=== PATIENT | male | born 1995 ===

== ENCOUNTER 2019-05-02 12:45 | Emergency (ER) | payer BC ==
--- NOTE | 2019-05-02 12:54 | ER Report ---
History and Physical Time Seen By MD: 12:50 HPI/ROS CHIEF COMPLAINT: Laceration, suture removal. HISTORY OF PRESENT ILLNESS: The patient returns to the ED for suture removal. There have been no problems and no symptoms of infection. The laceration was on the right fourth and fifth fingers. Sutures have been in place for 7 days. Allergies: Coded Allergies: No Known Drug Allergies (Unverified , 04/22/19) Past Medical/Surgical History Patient has no pertinent medical or surgical history. Reviewed Nurses Notes: Yes Constitutional Vital Sign - Last 24 Hours 05/02/19 13:05 Temp 98.2 Pulse 97 Resp 20 B/P (MAP) 146/90 Pulse Ox 93 O2 Delivery Room Air Physical Exam General appearance: alert no distress Skin: The laceration of the right fourth and fifth fingers is well healing and appears to have no evidence of infection. MEDICAL DECISION MAKING: I requested that the nurse remove the sutures. Following removal there was no dehiscence of the wound noted. Medical Decision Making ED Course/Re-evaluation ED Course Patient is admitted and examined, history and physical were obtained. Differential diagnoses were considered. On examination lungs are clear, heart is regular. Patient had no dehiscence of the wound after sutures are removed. Patient will be discharged home. He is to monitor for signs of infection. Patient verbalized understanding and agreement with plan. Decision to Disposition Date: May 02, 2019 Decision to Disposition Time: 12:54 Depart Departure Latest Vital Signs Vital Signs Date Time Temp Pulse Resp B/P (MAP) Pulse Ox O2 Delivery O2 Flow Rate FiO2 05/02/19 13:05 98.2 97 20 146/90 93 Room Air Impression: Primary Impression: Visit for suture removal Condition: Improved Disposition: HOME OR SELF-CARE Patient Instructions: Stitches Removal (ED) Additional Instructions: Continue to allow laceration to heal. Keep area clean. If redness, heat or discharge appear these could be signs of infection and return to ED or primary care provider. MARLO SOTO May 02, 2019 12:54
[2019-05-02 13:05] VITALS: BP 146/90
== END 2019-05-02 13:05 | disposition home or self-care (01) ==
LOC: ER 12:50
DX: S61.214D Laceration without foreign body of right ring finger without damage to nail, subsequent encounter (principal); S61.216D Laceration without foreign body of right little finger without damage to nail, subsequent encounter
CPT/HCPCS: 99281